=== PATIENT | male | born 1945 | race Caucasian/White ===

== ENCOUNTER → 2023-08-17 | Outpatient (CLI) | payer MEDICARE, OTHER ==
--- NOTE | 2023-08-18 10:19 | MR ---
EXAMINATION TYPE: MR Prostate wo/w con DATE OF EXAM: 08/17/2023 7:37 AM COMPARISON: None. CLINICAL INDICATION:Male, 78 years old with history of C61 prostate ca; Prostate cancer. TECHNIQUE: Multi-planar, multi-sequence imaging of the pelvis is performed prior to and following the uncomplicated administration of bolus intravenous gadolinium. CONTRAST: 9 [facility] Interpretive Criteria: PI-RADS v2.1 SERUM PSA: 16.6 on 07/15/2023 14.8 on 06/19/2022. 12.2 on 06/03/2021. SURGICAL PATHOLOGY: Positive biopsy 08/13/2021 4+3 = 7 Lenin FINDINGS: Prostatic dimensions: 5.7 x 6.3 x 4.8 cm. Ellipsoid Volume:90.25 (PSA density=0.18 ng/mL/mL) CENTRAL GLAND (Central and Transition Zones/CZ+TZ): Multiple bilateral, heterogenous appearing hypertrophic stromal nodules, without suspicious lesion. M edian lobe hypertrophy with protrusion into the base of the bladder. (PI-RADS 2) PERIPHERAL ZONE (PZ): Right posterior lateral peripheral zone bilobed wedge-shaped area with increased DWI and low ADC sign al series 803 image 64. Area measures 9 x 4 mm in totality in the mid gland of the right posterior pe ripheral zone. (PI-RADS 3) Additional, Bilateral linear, indistinct wedgelike areas of low ADC, and low T2 signal, No evidence o f masslike abnormality, or localized perfusional hypervascularity, to further suggest a focus of clin ically significant prostate cancer. (PI-RADS 2) SEMINAL VESICLES (SV): Symmetric and unremarkable. PERIPROSTATIC TISSUES: Unremarkable. LYMPH NODES: No enlarged pelvic lymph node. REMAINING PELVIS: Bladder wall is within normal limits given distention. No abnormal free or organized intrapelvic fluid collection. No pathologic bowel dilation or mural thickening. No hernia visualized Large bilateral fluid collections within the scrotum. Otherwise compatible with hydrocele. OSSEOUS STRUCTURES: No suspicious osseous abnormality. IMPRESSION: 1. PI-RADS 3 lesion right peripheral mid gland posteriorly with a bilobed shaped, could represent sca rring. Short-term follow-up and descending recommended. 2. Substantial BPH, estimated gland volume 90.25 mL. 3. Large bilateral hydroceles.
== END | disposition home or self-care (01) ==
LOC: RADMRIMAIN 06:21
PROVIDERS: ATTEND Urology
DX: C61 Malignant neoplasm of prostate (principal); N43.3 Hydrocele, unspecified; N40.0 Benign prostatic hyperplasia without lower urinary tract symptoms
CPT/HCPCS: 72197; A9585